=== PATIENT | male | born 1995 | race Caucasian/White ===

== ENCOUNTER 2017-01-08 10:26 | Emergency (ER) | payer SELFPAY | END 2017-01-08 12:12 | disposition home or self-care (01) | LOC: D.ER 10:26 | DX: S80.12XA Contusion of left lower leg, initial encounter (principal); W26.8XXA Contact with other sharp object(s), not elsewhere classified, initial encounter; Y93.89 Activity, other specified; Y92.830 Public park as the place of occurrence of the external cause; S80.812A Abrasion, left lower leg, initial encounter ==